=== PATIENT | male | born 1960 | race Caucasian/White ===

== ENCOUNTER → 2017-12-20 | Outpatient (CLI) | payer OTHER | LOC: M LRY 16:17 | DX: S69.91XA Unspecified injury of right wrist, hand and finger(s), initial encounter (principal); S49.91XA Unspecified injury of right shoulder and upper arm, initial encounter; X58.XXXA Exposure to other specified factors, initial encounter; Y92.9 Unspecified place or not applicable | CPT/HCPCS: 73030 ==

== ENCOUNTER 2018-08-08 11:26 | Emergency (ER) | payer OTHER ==
[~2018-08-08] VITALS: Ht 182.9 cm; Wt 118.2 kg
[2018-08-08] MEDS ORDERED: LISI-538 PO (11:36)
[2018-08-08] MEDS ORDERED: ATOR1TAB21 PO (11:36)
[2018-08-08] MEDS ORDERED: METF10004 PO (11:36)
--- NOTE | 2018-08-08 13:23 | ED PDOC ---
Post-Departure Follow-Up patient BP noted to be elevated - he is agitated in Ed and reports he did not ta ke his BP meds today - tells me he will take whne gets home - no evidecne of end organ damage Naima Anna MD August 08, 2018 13:23
[2018-08-08 13:31] VITALS: BP 171/107
== END 2018-08-08 13:39 | disposition home or self-care (01) ==
LOC: M ED 11:26
DX: F43.20 Adjustment disorder, unspecified (principal); R03.0 Elevated blood-pressure reading, without diagnosis of hypertension; Z79.899 Other long term (current) drug therapy; Z88.5 Allergy status to narcotic agent; Z87.891 Personal history of nicotine dependence